=== PATIENT | female | born 1945 | race Caucasian/White ===

== ENCOUNTER 2018-12-10 11:28 | Observation (INO) | payer MEDICARE, BC ==
[~2018-12-10] VITALS: Ht 162.6 cm; Wt 90.9 kg
[~2018-12-10 11:28] MED LIST: ASPI-1265 PO; CLON-528 PO; DIPH25CA83 PO; ESOM20CA PO; METF-438 PO; MULT-1085 PO; RISP0.257 PO; THYROID MEDICATION PO; TOPICAL STEROID TOP
[2018-12-10] MEDS ORDERED: normal saline 1000ML IV soln IVB ONE ×2 (11:35→12:25)
--- NOTE | 2018-12-10 11:45 | NUR ---
Stroke RN Laurie at bedside to assess the patient.
[2018-12-10 11:57] LABS: BASOPHILS % (AUTO) 0.5 % (0-1); EOSINOPHILS # (AUTO) 0.2 X10'3 (0-0.9); EOSINOPHILS % (AUTO) 2.5 % (0-6); HEMATOCRIT 40.7 % (35.0-45.0); HEMOGLOBIN 13.4 g/dl (12.0-16.0); LYMPHOCYTES # (AUTO) 1.7 X10'3 (1.1-4.8); LYMPHOCYTES % (AUTO) 21.2 % (21-51); MEAN CORPUSCULAR HEMOGLOBIN 28.8 PG (27.0-31.0); MEAN CORPUSCULAR VOLUME 87.3 FL (78-98); MEAN PLATELET VOLUME 6.7 FL (7.4-10.4); MONOCYTES # (AUTO) 0.5 X10'3 (0-0.9); MONOCYTES % (AUTO) 6.8 % (2-12); NEUTROPHILS # (AUTO) 5.4 X10'3 (1.8-7.7); PLATELET COUNT 336 X10'3 (140-440); RED BLOOD COUNT 4.66 X10'6 (4.20-5.60); RED CELL DISTRIBUTION WIDTH 13.7 % (11.5-14.5); WHITE BLOOD COUNT 7.9 X10'3 (4.5-11.0)
--- NOTE | 2018-12-10 12:04 | NUR ---
TELENEURO CONSULT INITIATED
[2018-12-10 12:13] LABS: ALANINE AMINOTRANSFERASE 38 U/L (12-78); ALBUMIN 3.8 G/DL (3.4-5.0); ALBUMIN/GLOBULIN RATIO 1.4 (1.1-1.5); ALKALINE PHOSPHATASE 58 IU/L (46-116); ANION GAP 14 (8-16); ASPARTATE AMINO TRANSFERASE 20 U/L (10-37); BILIRUBIN,TOTAL 0.5 MG/DL (0.1-1.0); BLOOD UREA NITROGEN 15 MG/DL (7-18); BUN/CREATININE RATIO 9.3 (6.6-38.0); CALCIUM 9.2 MG/DL (8.5-10.1); CHLORIDE 106 MMOL/L (99-107); CREATININE 1.62 MG/DL (0.40-0.90); ETHANOL < 0.010 GM/DL (0.0-0.010); GLUCOSE 129 MG/DL (70-104); POTASSIUM 4.3 MMOL/L (3.5-5.1); SODIUM 141 MMOL/L (135-145); TOTAL CARBON DIOXIDE 21.1 MMOL/L (24-32); TOTAL PROTEIN 6.6 G/DL (6.4-8.2); TROPONIN I < 0.04 NG/ML (0.0-0.05); eGFR 31 ML/MIN
--- NOTE | 2018-12-10 12:19 | NUR ---
Level 1 stroke alert paged at 11:42. My arrival was 11:45. Pt is alert and oriented x 3. Had an appointment with pcp for follow up re: med changes at which time the pcp noticed pt was having difficulty in forming words. PCP advised pt to come to the ED. This occurred at approx 1100 in her presence this morning. Pt states " I layed in bed a while this morning." Pt typically gets right up. Spouse said at about 0900 this morning pt had difficulty walking down the hallway at home and needed assistance to the car. Pt has a tremor, spouse says its not usually this bad. Both hands are trem Addendum: 12/10/18 at 1246 by AGUILAR Above notes by Dell Monge RN
--- NOTE | 2018-12-10 12:25 | NUR ---
TELE neurologist consultation in progress at this time. Stroke nurse at bedside.
[2018-12-10] MEDS ORDERED: iohexol 350MG/ML 100ml bottle IV ONE (12:37)
[2018-12-10] MEDS ORDERED: morphine 2 MG/ML inj. syringe IV PRN ×2 (12:45)
[2018-12-10] MEDS ORDERED: acetaminophen 325mg tablet PO PRN ×2 (12:45)
[2018-12-10] MEDS ORDERED: mag hydrox/Alum hydrox/simeth 30ml oral suspension PO PRN (12:45)
[2018-12-10] MEDS ORDERED: ondansetron/PF 4mg/2ml inj IV PRN (12:45)
[2018-12-10] MEDS ORDERED: magnesium hydroxide 30ml (MOM) UD suspension PO PRN (12:45)
[2018-12-10] MEDS ORDERED: HYDROcodone/acetaminophen 5mg/325mg tablet PO PRN (12:45)
[2018-12-10] MEDS ORDERED: METF-516 PO (13:10)
[2018-12-10] MEDS ORDERED: ESOM40CA54 PO (13:10)
[2018-12-10] MEDS ORDERED: CLON0.5T54 PO (13:10)
[2018-12-10] MEDS ORDERED: RISP1TAB72 PO (13:10)
[2018-12-10] MEDS ORDERED: MIRA50TA PO (13:22)
[2018-12-10] MEDS ORDERED: [UNRECOGNIZED DRUG - MIXTURE] PO (13:22)
[2018-12-10] MEDS ORDERED: LEVO5TAB29 PO (13:22)
[2018-12-10] MEDS ORDERED: FENO145T36 PO (13:22)
[2018-12-10] MEDS ORDERED: SUCR1ORA12 PO (13:22)
[2018-12-10] MEDS ORDERED: ONDA4TAB6 PO (13:22)
[2018-12-10] MEDS ORDERED: VENL150C58 PO (13:22)
[2018-12-10] MEDS ORDERED: LAMO200T2 PO (13:22)
[2018-12-10] MEDS ORDERED: CHOL100046 PO (13:25)
[2018-12-10 14:02] LABS: HEMOGLOBIN A1C 6.5 % (4.5-6.2)
[2018-12-10] MEDS ORDERED: ONDANSETRON HCL 4 MG PO PRN (16:50)
--- NOTE | 2018-12-10 17:00 | NUR ---
patient to MRI
[2018-12-10] MEDS ORDERED: ondansetron 4mg rapidly disintigrating tab PO PRN (17:10)
[2018-12-10] MEDS: metFORMIN 500mg tablet PO SCH (17:30)
--- NOTE | 2018-12-10 17:39 | NUR ---
Patient back from MRI
[2018-12-10] MEDS: sucralfate 1gm/10ml UD suspension PO SCH ×2 (17:52→21:10)
[2018-12-10 18:30] VITALS: BP 115/68
--- NOTE | 2018-12-10 18:50 | NUR ---
Patient in room ORTHO 4009. I have received report from ZAHEER Winn and had the opportunity to ask questions and assume patient care. Addendum: 12/10/18 at 2349 by Yair Koehler RN Amended: Links added.
[2018-12-10] MEDS ORDERED: METFORMIN HCL PO SCH (20:00)
[2018-12-10] MEDS ORDERED: lamoTRIgine 100mg tablet PO SCH (21:00)
[2018-12-10] MEDS ORDERED: clonazePAM 0.5mg tablet PO SCH (21:00)
[2018-12-10] MEDS ORDERED: LAMOTRIGINE PO SCH (21:00)
[2018-12-10] MEDS ORDERED: non-formulary drug (Clonazepam 1 TAB) PO SCH (21:00)
[2018-12-10] MEDS: [UNRECOGNIZED DRUG - REMARK] PO NR (21:03)
[2018-12-10 22:00] VITALS: BP 131/68
[2018-12-11 02:49] VITALS: BP 156/62
--- NOTE | 2018-12-11 05:31 | NUR ---
amb to bathroom fww sba bri well sl weak, when getting up from toilet started to lose balance and sat back on toilet, stood up again amb to sink and then to bed. Addendum: 12/11/18 at 0532 by Yair Koehler RN Amended: Links added.
[2018-12-11 06:00] VITALS: BP 121/44
--- NOTE | 2018-12-11 06:20 | NUR ---
Patient in room ORTHO 4009. I have received report from ASHLEY SCHWAB and had the opportunity to ask questions and assume patient care.
--- NOTE | 2018-12-11 06:23 | NUR ---
Problems reprioritized. Patient report given, questions answered & plan of care reviewed with ZAHEER Parisi. Addendum: 12/11/18 at 0624 by Yair Koehler RN Amended: Links added.
[2018-12-11 06:24] LABS: BASOPHILS % (AUTO) 0.4 % (0-1); EOSINOPHILS # (AUTO) 0.2 X10'3 (0-0.9); EOSINOPHILS % (AUTO) 2.8 % (0-6); HEMATOCRIT 36.8 % (35.0-45.0); HEMOGLOBIN 12.3 g/dl (12.0-16.0); LYMPHOCYTES # (AUTO) 2.3 X10'3 (1.1-4.8); LYMPHOCYTES % (AUTO) 34.5 % (21-51); MEAN CORPUSCULAR HEMOGLOBIN 28.8 PG (27.0-31.0); MEAN CORPUSCULAR HGB CONC 33.3 g/dL (33.0-36.5); MEAN CORPUSCULAR VOLUME 86.5 FL (78-98); MEAN PLATELET VOLUME 6.9 FL (7.4-10.4); MONOCYTES # (AUTO) 0.4 X10'3 (0-0.9); MONOCYTES % (AUTO) 6.6 % (2-12); NEUTROPHILS # (AUTO) 3.7 X10'3 (1.8-7.7); NEUTROPHILS % (AUTO) 55.7 % (42-75); PLATELET COUNT 281 X10'3 (140-440); RED BLOOD COUNT 4.26 X10'6 (4.20-5.60); RED CELL DISTRIBUTION WIDTH 13.9 % (11.5-14.5); WHITE BLOOD COUNT 6.7 X10'3 (4.5-11.0)
[2018-12-11 07:26] LABS: ALBUMIN 3.2 G/DL (3.4-5.0); ANION GAP 12 (8-16); BLOOD UREA NITROGEN 11 MG/DL (7-18); CALCIUM 8.2 MG/DL (8.5-10.1); CHLORIDE 111 MMOL/L (99-107); CHOL/HDL RATIO 3.7 (0.00-4.99); CHOLESTEROL 168 MG/DL (0-200); CREATININE 1.37 MG/DL (0.40-0.90); GLUCOSE 106 MG/DL (70-104); HDL CHOLESTEROL 46 MG/DL (35-60); LDL CHOLESTEROL 96 MG/DL (50-100); POTASSIUM 3.6 MMOL/L (3.5-5.1); SODIUM 146 MMOL/L (135-145); TOTAL CARBON DIOXIDE 22.6 MMOL/L (24-32); TRIGLYCERIDES 229 MG/DL (20-135); eGFR 38 ML/MIN
[2018-12-11] MEDS: metFORMIN 500mg tablet PO SCH (07:30)
[2018-12-11] MEDS ORDERED: pantoprazole 40mg Tablet.DR PO SCH (07:30)
[2018-12-11 08:00] VITALS: BP_SYST 144; BP_SYST 162; BP_SYST 164; BP_DIAS 65; BP_DIAS 76; BP_DIAS 81
[2018-12-11] MEDS ORDERED: MYRBETRIQ 50 MG PO SCH (08:00)
[2018-12-11] MEDS ORDERED: cetirizine 10mg tablet PO SCH (08:00)
[2018-12-11] MEDS ORDERED: [UNRECOGNIZED DRUG - MIXTURE] PO SCH (08:00)
[2018-12-11] MEDS ORDERED: non-formulary drug (Esomeprazole Magnesium 1 CAP) PO SCH (08:00)
[2018-12-11] MEDS ORDERED: aspirin 81mg tablet.DR PO SCH (08:00)
[2018-12-11] MEDS ORDERED: fenofibrate 145mg tablet PO SCH ×2 (08:00→08:30)
[2018-12-11] MEDS ORDERED: RISPERIDONE PO SCH (08:00)
[2018-12-11] MEDS ORDERED: vitamin D (cholecalciferol) 1,000 unit tablet PO SCH (08:00)
[2018-12-11] MEDS ORDERED: risperiDONE 0.5mg tablet PO SCH (08:00)
[2018-12-11] MEDS ORDERED: LEVOCETIRIZINE DIHYDROCHLORIDE PO SCH (08:00)
[2018-12-11] MEDS ORDERED: MIRABEGRON PO SCH (08:00)
[2018-12-11] MEDS ORDERED: venlafaxine XR 75mg capsule (Q24H) PO SCH (08:00)
[2018-12-11] MEDS ORDERED: [UNRECOGNIZED DRUG - MIXTURE] PO SCH (08:00)
[2018-12-11] MEDS: sucralfate 1gm/10ml UD suspension PO SCH ×2 (08:54→12:00)
[2018-12-11] MEDS: [UNRECOGNIZED DRUG - REMARK] PO NR (09:01)
--- NOTE | 2018-12-11 09:29 | NUR ---
at bedside upon my arrival. Pt lying upright in bed. Fells "good". Still dizzy when gets up. Still forgetful. Strength is good in all 4 extremities. Tremors in upper ext less pronounced.Stroke work up so far is negative.
[2018-12-11 10:00] VITALS: BP 155/75
--- NOTE | 2018-12-11 12:30 | NUR ---
PATIENT DISCHARGED SAFELY WITH AND ALL BELONGINGS IN POSSESSION. WALKER WAS PROVIDED BY CASE MANAGEMENT. PATIENT VERBALIZES UNDERSTANDING OF ALL DISCHARGE INSTRUCTIONS.
== END 2018-12-11 12:29 | disposition home or self-care (01) ==
LOC: ER 11:30 → ORTHO 4S 15:17
PROVIDERS: ADMIT Internal Medicine; ATTEND Internal Medicine
DX: R25.1 Tremor, unspecified (principal); R42 Dizziness and giddiness; E78.5 Hyperlipidemia, unspecified; G47.00 Insomnia, unspecified; N18.3 Chronic kidney disease, stage 3 (moderate); E11.22 Type 2 diabetes mellitus with diabetic chronic kidney disease; F31.62 Bipolar disorder, current episode mixed, moderate; G45.9 Transient cerebral ischemic attack, unspecified; Z90.710 Acquired absence of both cervix and uterus; Z88.0 Allergy status to penicillin; Z79.82 Long term (current) use of aspirin
CPT/HCPCS: 36415; 70450; 70496; 70498; 70544; 70551; 71045; 80048; 80053; 80061; 80320; 82140; 82948; 83036; 83880; 84484; 85025; 85610; 85651; 87081; 92508; 92616; 93005; 93306; 96360; 96361; 97162; 97530; 99284; G0378; Q9967

== ENCOUNTER 2019-01-11 05:42 | Emergency (ER) | payer MEDICARE, BC ==
[~2019-01-11] VITALS: Ht 162.6 cm; Wt 90.9 kg
[~2019-01-11 05:42] MED LIST changes: -ASPI-1265 PO; +CHOL100046 PO; -CLON-528 PO; +CLON0.5T54 PO; -DIPH25CA83 PO; -ESOM20CA PO; +ESOM40CA54 PO; +FENO145T36 PO; +LAMO200T2 PO; +LEVO5TAB29 PO; -METF-438 PO; +METF-516 PO; +MIRA50TA PO; -MULT-1085 PO; +ONDA4TAB6 PO; -RISP0.257 PO; +RISP1TAB72 PO; +SUCR1ORA12 PO; -THYROID MEDICATION PO; -TOPICAL STEROID TOP; +VENL150C58 PO; +[UNRECOGNIZED DRUG - MIXTURE] PO
[2019-01-11 05:44] VITALS: BP 144/78
[2019-01-11] MEDS ORDERED: LIDOcaine 1% 30ml preserv. free vial IJ ONE (06:00)
== END 2019-01-11 07:33 | disposition home or self-care (01) ==
LOC: ER 05:43
DX: S91.111A Laceration without foreign body of right great toe without damage to nail, initial encounter (principal); E11.9 Type 2 diabetes mellitus without complications; F31.9 Bipolar disorder, unspecified; F10.99 Alcohol use, unspecified with unspecified alcohol-induced disorder; Z88.0 Allergy status to penicillin; Z79.84 Long term (current) use of oral hypoglycemic drugs; Z79.899 Other long term (current) drug therapy; Z90.49 Acquired absence of other specified parts of digestive tract; Z90.710 Acquired absence of both cervix and uterus; Z98.890 Other specified postprocedural states; W18.39XA Other fall on same level, initial encounter; Y93.89 Activity, other specified; Y92.89 Other specified places as the place of occurrence of the external cause; Y99.8 Other external cause status; Y90.9 Presence of alcohol in blood, level not specified
CPT/HCPCS: 12001; 73660; 99283; J2001

== ENCOUNTER 2020-02-10 11:16 | Emergency (ER) | payer MEDICARE, BC ==
[~2020-02-10 11:16] MED LIST changes: +FENO145T26 PO; -FENO145T36 PO
[2020-02-10 11:47] LABS: BASOPHILS % (AUTO) 0.5 % (0-1); EOSINOPHILS # (AUTO) 0.1 X10'3 (0-0.9); EOSINOPHILS % (AUTO) 1.2 % (0-6); HEMATOCRIT 40.1 % (35.0-45.0); LYMPHOCYTES # (AUTO) 1.6 X10'3 (1.1-4.8); LYMPHOCYTES % (AUTO) 24.5 % (21-51); MEAN CORPUSCULAR HEMOGLOBIN 26.3 PG (27.0-31.0); MEAN CORPUSCULAR HGB CONC 32.5 g/dL (33.0-36.5); MEAN CORPUSCULAR VOLUME 81.1 FL (78-98); MEAN PLATELET VOLUME 6.8 FL (7.4-10.4); MONOCYTES # (AUTO) 0.3 X10'3 (0-0.9); MONOCYTES % (AUTO) 3.8 % (2-12); NEUTROPHILS # (AUTO) 4.6 X10'3 (1.8-7.7); PLATELET COUNT 373 X10'3 (140-440); RED BLOOD COUNT 4.94 X10'6 (4.20-5.60); RED CELL DISTRIBUTION WIDTH 17.1 % (11.5-14.5); WHITE BLOOD COUNT 6.6 X10'3 (4.5-11.0)
--- NOTE | 2020-02-10 11:56 | NUR ---
radiology at bedside.
[2020-02-10 12:05] LABS: ALANINE AMINOTRANSFERASE 13 U/L (12-78); ALBUMIN/GLOBULIN RATIO 1.4 (1.1-1.5); ALKALINE PHOSPHATASE 54 IU/L (46-116); ANION GAP 18 (8-16); ASPARTATE AMINO TRANSFERASE 13 U/L (10-37); BILIRUBIN,TOTAL 0.5 MG/DL (0.1-1.0); BLOOD UREA NITROGEN 18 MG/DL (7-18); BUN/CREATININE RATIO 13.4 (6.6-38.0); CHLORIDE 103 MMOL/L (99-107); CREATININE 1.34 MG/DL (0.40-0.90); GLUCOSE 254 MG/DL (70-104); POTASSIUM 3.3 MMOL/L (3.5-5.1); SODIUM 139 MMOL/L (135-145); TOTAL CARBON DIOXIDE 18.3 MMOL/L (24-32); TOTAL PROTEIN 6.8 G/DL (6.4-8.2); eGFR 39 ML/MIN
[2020-02-10 12:17] LABS: CLARITY,URINE SLIGHTLY CLOUDY (Clear); COLOR,URINE YELLOW (Yellow); GLUCOSE, URINE NEGATIVE (Neg); KETONES,URINE TRACE mg/dl (Neg); LEUKOCYTE ESTERASE ,URINE NEGATIVE (Neg); NITRITES, URINE NEGATIVE (Neg); OCCULT BLOOD,URINE NEGATIVE (Neg); PH,URINE 6.5 (4.8-8.0); PROTEIN,URINE NEGATIVE (Neg)
[2020-02-10 12:21] LABS: UA COLLECTION TYPE STRAIGHT CATH
[2020-02-10 12:23] LABS: TROPONIN I < 0.04 NG/ML (0.0-0.05)
[2020-02-10 12:23] LABS: BACTERIA,URINE FEW /HPF (Neg); RBC,URINE 0-2 /HPF (0-2); SQUAMOUS EPITHELIAL CELL,UR NONE SEEN /LPF (FEW); WBC,URINE 0-4 /HPF (0-4)
[2020-02-10 12:25] LABS: CAL OXALATE CRYSTALS FEW /HPF (NEGATIVE)
[2020-02-10 12:26] LABS: AMORPHOUS URATES 1+
--- NOTE | 2020-02-10 12:32 | NUR ---
PT'S JUNIE REDDY .
--- NOTE | 2020-02-10 14:08 | NUR ---
Spoke to pt's , who states he will present to ED to give pt a ride home
[2020-02-10 14:53] VITALS: BP 178/77
== END 2020-02-10 14:55 | disposition home or self-care (01) ==
LOC: ER 11:17
DX: R41.82 Altered mental status, unspecified (principal); R53.1 Weakness; G20 Parkinson's disease; E11.9 Type 2 diabetes mellitus without complications; F31.9 Bipolar disorder, unspecified; Z90.49 Acquired absence of other specified parts of digestive tract; Z90.710 Acquired absence of both cervix and uterus; Z98.890 Other specified postprocedural states; Z88.0 Allergy status to penicillin; Z79.899 Other long term (current) drug therapy
CPT/HCPCS: 36415; 71045; 80053; 81001; 84484; 85025; 93005; 99285

== ENCOUNTER 2021-06-22 18:30 | Emergency (ER) | payer MEDICARE, BC ==
[~2021-06-22] VITALS: Ht 165.1 cm; Wt 72.7 kg
[~2021-06-22 18:30] MED LIST changes: +RISP1TAB69 PO; -RISP1TAB72 PO
[2021-06-22 18:40] VITALS: BP 140/41
[2021-06-22] MEDS ORDERED: LIDOcaine 1% W/epiNEPHrine 1:200,000 10ml vial IJ ONE (19:55)
== END 2021-06-22 21:51 | disposition home or self-care (01) ==
LOC: ER 18:31
DX: S61.412A Laceration without foreign body of left hand, initial encounter (principal); E11.9 Type 2 diabetes mellitus without complications; F31.9 Bipolar disorder, unspecified; Z90.49 Acquired absence of other specified parts of digestive tract; Z90.710 Acquired absence of both cervix and uterus; Z72.89 Other problems related to lifestyle; Z98.890 Other specified postprocedural states; Z88.0 Allergy status to penicillin; Z79.899 Other long term (current) drug therapy; X58.XXXA Exposure to other specified factors, initial encounter; Y93.89 Activity, other specified; Y92.89 Other specified places as the place of occurrence of the external cause; Y99.8 Other external cause status
CPT/HCPCS: 12001; 99283

== ENCOUNTER 2024-01-03 12:18 | Emergency (ER) | payer MEDICARE, BC ==
[~2024-01-03] VITALS: Ht 165.1 cm; Wt 180.0 kg
[~2024-01-03 12:18] MED LIST changes: -ESOM40CA54 PO; +ESOM40CA66 PO
--- NOTE | 2024-01-03 13:47 | NUR ---
TECH CLEANING OUT LAC ON HEAD.
[2024-01-03] MEDS: LIDOcaine 1% W/epiNEPHrine 1:100,000 20ml vial SQ ONE (14:50)
[2024-01-03] MEDS ORDERED: HYDR-3965 PO (15:03)
[2024-01-03] MEDS: HYDROcodone/acetaminophen 5mg/325mg tablet PO ONE (15:31)
[2024-01-03 16:08] VITALS: BP 147/74; PULSE 57; RESP 16; TEMP 98.1; O2SAT 98
== END 2024-01-03 15:40 | disposition home or self-care (01) ==
LOC: ER 12:18
DX: S01.01XA Laceration without foreign body of scalp, initial encounter (principal); E11.9 Type 2 diabetes mellitus without complications; R51.9 Headache, unspecified; Z88.0 Allergy status to penicillin; Z79.899 Other long term (current) drug therapy; Z79.84 Long term (current) use of oral hypoglycemic drugs; Z90.49 Acquired absence of other specified parts of digestive tract; Z90.710 Acquired absence of both cervix and uterus; W19.XXXA Unspecified fall, initial encounter; Y93.89 Activity, other specified; Y92.89 Other specified places as the place of occurrence of the external cause; Y99.8 Other external cause status
CPT/HCPCS: 12001; 70450; 99284